=== PATIENT | female | born 1985 | race Caucasian/White ===

== ENCOUNTER 2021-06-29 15:10 | Outpatient (CLI) | payer BC, SELFPAY ==
--- NOTE | ~2021-06-29 | XR_ITS ---
XR foot RT standing 2V DATE: 06/29/2021 15:55 INDICATION: Rheumatoid arthritis TECHNIQUE: Standing AP and lateral views COMPARISON: None FINDINGS: There is moderate plantar and posterior calcaneal enthesopathy without associated periostit is or erosive change. No erosive change is evident. No fracture, dislocation, periosteal reaction or bone destruction. Ther e is narrowing at some of the interphalangeal joints likely consistent with osteoarthritis. IMPRESSION: Plantar and posterior calcaneal enthesopathy Reviewed, dictated and finalized at location B.
--- NOTE | ~2021-06-29 | XR_ITS ---
EXAMINATION: XR hand BI arthritis min 3V DATE: 06/29/2021 15:55 INDICATION: Rheumatoid arthritis with rheumatoid factor of multiple sites. TECHNIQUE: 4 views of right hand and 4 views of left hand on 7 radiographs were obtained. COMPARISON: None. FINDINGS: RIGHT HAND: There is hyperextension of third and fifth proximal interphalangeal joints. No fracture. There is mild osteoarthritis of third metacarpophalangeal joint. LEFT HAND: There is hyperextension of third, fourth, and fifth proximal interphalangeal joints. No fr acture. There is mild osteoarthritis of second and third metacarpophalangeal joints and fifth distal interphalangeal joint. IMPRESSION: 1. Mild polyarticular osteoarthritis. Reviewed, dictated and finalized at location A.
--- NOTE | ~2021-06-29 | XR_ITS ---
XR foot LT standing 2V DATE: 06/29/2021 15:55 INDICATION: Rheumatoid arthritis TECHNIQUE: Standing AP and lateral views COMPARISON: None FINDINGS: Mild plantar and posterior calcaneal enthesopathy without associated erosive change or briana ostitis. There is evidence of some erosion of the medial base of the proximal phalanx of the fifth digit. No e rosive change is evident. No fracture, dislocation, periosteal reaction or bone destruction. IMPRESSION: Plantar and posterior calcaneal enthesopathy Erosion at the medial base of the proximal phalanx of the fifth digit Reviewed, dictated and finalized at location B.
[2021-06-29 15:41] LABS: Hematocrit 39.3 % (37.0-47.0); Hemoglobin 12.9 g/dL (12.0-15.0); Mean Corpuscular HGB Conc 32.8 g/dl (32-36); Mean Corpuscular Hemoglobin 27.9 pg (26-34); Mean Corpuscular Volume 85.1 fl (80-100); Mean Platelet Volume 10.3 fl (7.4-10.4); Platelet Count Result 268 k/mm3 (150-375); Red Blood Count 4.62 M/mm3 (4.2-5.4); Red Cell Distribution Width 13.6 % (11.5-14.5); White Blood Count 5.8 K/mm3 (4.5-10.0)
[2021-06-29 15:44] LABS: Add Urine Microscopic? YES; Appearance Urine Cloudy (Clear); Bacteria Urine Trace /hpf; Bilirubin Urine Negative (Negative); Blood Urine Negative (Negative); Color Urine Yellow (Yellow); Glucose Urine UA Negative (Negative); Ketones Urine Negative (Negative); Leukocyte Esterase Ur 3+ LEU/UL (Negative); Mucus Urine Rare /lpf; Nitrate Urine Negative (Negative); Protein Urine Negative (Negative); Squamous Epithelial Cell Urine Many /hpf (Few); Urobilinogen Urine Negative mg/dL (<2.0); WBC Urine 21-30 /hpf
[2021-06-29 15:46] LABS: Alanine Aminotransferase 30 U/L (4-35); Albumin Level 4.9 g/dL (3.5-5.1); Alkaline Phosphatase 82 U/L (38-126); Anion Gap 10 mmol/L (8-16); Aspartate Amino Transferase 55 U/L (14-36); Bilirubin,Total 0.6 mg/dL (0.2-1.3); Blood Urea Nitrogen 11 mg/dL (7-17); CRP < 0.5 mg/dL (<1.0); Calcium 9.9 mg/dL (8.4-10.2); Carbon Dioxide 24 mmol/L (22-30); Chloride 105 mmol/L (98-107); Estimated Glomerular Filt Rate > 60; Glucose 97 mg/dL (65-110); Potassium 3.9 mmol/L (3.4-5.0); Sodium 139 mmol/L (137-145)
[2021-06-29 16:07] LABS: Erythrocyte Sedimentation Rate 85 mm/hr (0-20)
[2021-06-29 19:14] LABS: Hepatitis B Surface Antigen Negative (Negative)
[2021-06-29 19:32] LABS: Hepatitis B Surface Anti Res Negative; Hepatitis C Virus Antibody Negative (Negative)
[2021-07-02 05:11] LABS: Thyroid Peroxidase Antibodies 2 IU/mL (<9)
[2021-07-02 11:32] LABS: Anti Cyclic Citrullinated Pept >250 Units (<20)
[2021-07-03 10:49] LABS: NIL 0.03 IU/mL; Quantiferon TB Plus, 1T NEGATIVE (NEGATIVE); TB1-NIL 0.01 IU/mL
[2021-07-03 14:15] LABS: Anti Nuclear Antibody Pattern Nuclear, Speckled; Anti Nuclear Antibody Titer >=1:1280 (Negative)
== END 2021-06-29 15:11 | disposition home or self-care (01) ==
PROVIDERS: PCP Family Medicine; Visit Provider Internal Medicine
DX: Z11.59 Encounter for screening for other viral diseases (principal); M05.79 Rheumatoid arthritis with rheumatoid factor of multiple sites without organ or systems involvement; E55.9 Vitamin D deficiency, unspecified; M19.90 Unspecified osteoarthritis, unspecified site; M19.042 Primary osteoarthritis, left hand; M19.041 Primary osteoarthritis, right hand; M77.32 Calcaneal spur, left foot; M77.31 Calcaneal spur, right foot
CPT/HCPCS: 36415; 73130; 73620; 80053; 81001; 82306; 84443; 85027; 85652; 86038; 86039; 86140; 86200; 86376; 86480; 86706; 86803; 87086; 87340

== ENCOUNTER 2021-07-07 14:16 | Outpatient (CLI) | payer BC, SELFPAY ==
--- NOTE | ~2021-07-07 | XR_ITS ---
XR chest 2V DATE: 07/07/2021 14:35 INDICATION: Cough TECHNIQUE: PA and lateral views COMPARISON: None FINDINGS: Normal heart size. No hilar or mediastinal enlargement. No pulmonary infiltrate or consolid ation, pleural effusion or pulmonary vascular congestion or pneumothorax. Included skeletal structures are unremarkable. IMPRESSION: Negative Reviewed, dictated and finalized at location A. IMPRESSION: Negative
== END 2021-07-07 14:17 | disposition home or self-care (01) ==
PROVIDERS: PCP Family Medicine; Visit Provider Internal Medicine
DX: R05 Cough (principal)
CPT/HCPCS: 71046

== ENCOUNTER 2021-10-04 14:28 | Outpatient (CLI) | payer BC, SELFPAY ==
[2021-10-04 14:59] LABS: Hematocrit 40.4 % (37.0-47.0); Hemoglobin 13.6 g/dL (12.0-15.0); Mean Corpuscular HGB Conc 33.7 g/dl (32-36); Mean Corpuscular Hemoglobin 29.4 pg (26-34); Mean Corpuscular Volume 87.3 fl (80-100); Mean Platelet Volume 10.4 fl (7.4-10.4); Platelet Count Result 240 k/mm3 (150-375); Red Blood Count 4.63 M/mm3 (4.2-5.4); Red Cell Distribution Width 13.2 % (11.5-14.5); White Blood Count 4.6 K/mm3 (4.5-10.0)
[2021-10-04 15:06] LABS: Add Urine Microscopic? YES; Appearance Urine Cloudy (Clear); Bacteria Urine Trace /hpf; Bilirubin Urine Negative (Negative); Blood Urine Negative (Negative); Color Urine Yellow (Yellow); Glucose Urine UA Negative (Negative); Ketones Urine Negative (Negative); Leukocyte Esterase Ur 3+ LEU/UL (Negative); Mucus Urine Rare /lpf; Nitrate Urine Negative (Negative); Protein Urine 1+ mg/dL (Negative); Specific Grav Ur 1.025 (1.001-1.035); Squamous Epithelial Cell Urine Many /hpf (Few); Urobilinogen Urine Negative mg/dL (<2.0)
[2021-10-04 15:15] LABS: Alanine Aminotransferase 26 U/L (4-35); Albumin Level 4.8 g/dL (3.5-5.1); Alkaline Phosphatase 69 U/L (38-126); Anion Gap 11 mmol/L (8-16); Aspartate Amino Transferase 39 U/L (14-36); Bilirubin,Total 0.5 mg/dL (0.2-1.3); Blood Urea Nitrogen 13 mg/dL (7-17); CRP < 0.5 mg/dL (<1.0); Calcium 9.8 mg/dL (8.4-10.2); Carbon Dioxide 27 mmol/L (22-30); Chloride 103 mmol/L (98-107); Estimated Glomerular Filt Rate > 60; Glucose 88 mg/dL (65-110); Sodium 141 mmol/L (137-145)
[2021-10-04 15:19] LABS: Complement C3 131 mg/dL (88-165)
[2021-10-04 15:32] LABS: Erythrocyte Sedimentation Rate 35 mm/hr (0-20)
[2021-10-07 07:57] LABS: SM Antibody <1.0; SM/RNP Antibody <1.0; SS-A >8.0; SS-B <1.0
== END 2021-10-04 14:29 | disposition home or self-care (01) ==
LOC: ANHLAB 14:31
PROVIDERS: PCP Family Medicine; Visit Provider Internal Medicine
DX: M05.79 Rheumatoid arthritis with rheumatoid factor of multiple sites without organ or systems involvement (principal); R70.0 Elevated erythrocyte sedimentation rate; M19.90 Unspecified osteoarthritis, unspecified site; R05.9 Cough, unspecified
CPT/HCPCS: 36415; 80053; 81001; 85027; 85652; 86140; 86160; 86225; 86235; 87086

== ENCOUNTER 2022-02-08 14:43 | Outpatient (CLI) | payer BC, SELFPAY ==
[2022-02-08 14:58] LABS: Mean Corpuscular HGB Conc 33.3 g/dl (32-36); Mean Corpuscular Hemoglobin 29.3 pg (26-34); Mean Corpuscular Volume 87.8 fl (80-100); Mean Platelet Volume 9.8 fl (7.4-10.4); Platelet Count Result 290 k/mm3 (150-375); Red Blood Count 4.44 M/mm3 (4.2-5.4); Red Cell Distribution Width 13.1 % (11.5-14.5); White Blood Count 6.3 K/mm3 (4.5-10.0)
[2022-02-08 15:14] LABS: Alanine Aminotransferase 23 U/L (4-35); Albumin Level 4.9 g/dL (3.5-5.1); Alkaline Phosphatase 58 U/L (38-126); Anion Gap 9 mmol/L (8-16); Aspartate Amino Transferase 35 U/L (14-36); Bilirubin,Total 0.5 mg/dL (0.2-1.3); Blood Urea Nitrogen 10 mg/dL (7-17); CRP 1.5 mg/dL (<1.0); Calcium 9.1 mg/dL (8.4-10.2); Carbon Dioxide 26 mmol/L (22-30); Chloride 105 mmol/L (98-107); Estimated Glomerular Filt Rate > 60; Glucose 93 mg/dL (65-110); Potassium 4.3 mmol/L (3.4-5.0); Sodium 140 mmol/L (137-145)
[2022-02-08 15:30] LABS: Erythrocyte Sedimentation Rate 63 mm/hr (0-20)
== END 2022-02-08 14:44 | disposition home or self-care (01) ==
PROVIDERS: PCP Family Medicine; Visit Provider Internal Medicine
DX: M06.9 Rheumatoid arthritis, unspecified (principal); M19.90 Unspecified osteoarthritis, unspecified site
CPT/HCPCS: 36415; 80053; 85027; 85652; 86140

== ENCOUNTER 2022-07-02 14:29 | Outpatient (CLI) | payer BC, SELFPAY ==
[2022-07-02 15:00] LABS: Hematocrit 40.2 % (37.0-47.0); Hemoglobin 13.4 g/dL (12.0-15.0); Mean Corpuscular HGB Conc 33.3 g/dl (32-36); Mean Corpuscular Hemoglobin 28.5 pg (26-34); Mean Corpuscular Volume 85.5 fl (80-100); Mean Platelet Volume 10.1 fl (7.4-10.4); Platelet Count Result 292 k/mm3 (150-375); Red Cell Distribution Width 13.5 % (11.5-14.5); White Blood Count 5.8 K/mm3 (4.5-10.0)
[2022-07-02 15:14] LABS: Alanine Aminotransferase 30 U/L (6-35); Albumin Level 4.9 g/dL (3.5-5.1); Alkaline Phosphatase 57 U/L (38-126); Anion Gap 11 mmol/L (8-16); Aspartate Amino Transferase 40 U/L (14-36); Bilirubin,Total 0.4 mg/dL (0.2-1.3); Blood Urea Nitrogen 10 mg/dL (7-17); CRP 0.6 mg/dL (<1.0); Calcium 9.8 mg/dL (8.4-10.2); Carbon Dioxide 27 mmol/L (22-30); Chloride 99 mmol/L (98-107); Estimated Glomerular Filt Rate > 60; Glucose 98 mg/dL (65-110); Potassium 4.3 mmol/L (3.4-5.0); Sodium 137 mmol/L (137-145)
[2022-07-02 15:17] LABS: Appearance Urine Slightly Cloudy (Clear); Bilirubin Urine Negative (Negative); Blood Urine Negative (Negative); Color Urine Yellow (Yellow); Glucose Urine UA Negative (Negative); Ketones Urine Negative (Negative); Leukocyte Esterase Ur Negative LEU/UL (Negative); Nitrate Urine Negative (Negative); Protein Urine Negative (Negative); Specific Grav Ur >= 1.030 (1.001-1.035); Urobilinogen Urine 0.2 mg/dL (<2.0)
[2022-07-02 15:21] LABS: Mucus Urine Rare /lpf; RBC Urine 0-2 /hpf (0-2); Squamous Epithelial Cell Urine Occasional /hpf (Few); WBC Urine 0-3 /hpf
[2022-07-02 15:23] LABS: Add Urine Microscopic? YES
[2022-07-02 17:41] LABS: Erythrocyte Sedimentation Rate 1 mm/hr (0-20)
== END 2022-07-02 14:30 | disposition home or self-care (01) ==
LOC: ANHLAB 14:31
PROVIDERS: PCP Family Medicine; Visit Provider Internal Medicine
DX: M19.90 Unspecified osteoarthritis, unspecified site (principal); M06.9 Rheumatoid arthritis, unspecified; R63.4 Abnormal weight loss
CPT/HCPCS: 36415; 80053; 81001; 85027; 85652; 86140

== ENCOUNTER 2022-12-17 09:16 | Outpatient (CLI) | payer BC, SELFPAY ==
[2022-12-17 20:27] LABS: Hematocrit 44.2 % (37.0-47.0); Hemoglobin 14.1 g/dL (12.0-15.0); Mean Corpuscular HGB Conc 31.9 g/dl (32-36); Mean Corpuscular Volume 87.9 fl (80-100); Mean Platelet Volume 12.1 fl (7.4-10.4); Platelet Count Result 167 k/mm3 (150-375); Red Blood Count 5.03 M/mm3 (4.2-5.4); Red Cell Distribution Width 13.2 % (11.5-14.5); White Blood Count 5.7 K/mm3 (4.5-10.0)
[2022-12-17 20:44] LABS: Alanine Aminotransferase 51 U/L (6-35); Albumin Level 4.7 g/dL (3.5-5.1); Alkaline Phosphatase 81 U/L (38-126); Anion Gap 9 mmol/L (8-16); Aspartate Amino Transferase 69 U/L (14-36); Bilirubin,Total 0.5 mg/dL (0.2-1.3); Blood Urea Nitrogen 10 mg/dL (7-17); CRP 0.8 mg/dL (<1.0); Calcium 9.4 mg/dL (8.4-10.2); Carbon Dioxide 30 mmol/L (22-30); Chloride 102 mmol/L (98-107); Estimated Glomerular Filt Rate > 60; Glucose 95 mg/dL (65-110); Potassium 4.2 mmol/L (3.4-5.0); Sodium 141 mmol/L (137-145)
[2022-12-17 21:17] LABS: Band Neutrophils Percent 1 % (0-6); Eosinophils Absolute Manual 1.14 K/mm3 (0.02-0.5); Eosinophils Percent Manual 20 % (0-4); Lymphocytes Percent Manual 37 % (18-44); Monocytes Absolute Manual 0.22 K/mm3 (0.1-0.90); Monocytes Percent Manual 4 % (3-9); Neutrophils Absolute Manual 2.22 K/mm3 (1.7-7.2); Neutrophils Percent Manual 38 % (46-73); Platelet Estimate Adequate (Adequate); Total Cells Counted 100
[2022-12-17 21:18] LABS: Erythrocyte Sedimentation Rate 14 mm/hr (0-20); Schistocytes None Seen (NORMAL)
[2022-12-17 21:26] LABS: Appearance Urine Clear (Clear); Bilirubin Urine Negative (Negative); Blood Urine Negative (Negative); Color Urine Yellow (Yellow); Glucose Urine UA Negative (Negative); Ketones Urine Negative (Negative); Leukocyte Esterase Ur Trace LEU/UL (Negative); Nitrate Urine Negative (Negative); Protein Urine Negative (Negative); Specific Grav Ur 1.025 (1.001-1.035); Urobilinogen Urine 0.2 mg/dL (<2.0)
[2022-12-17 21:36] LABS: Add Urine Microscopic? YES; Bacteria Urine Trace /hpf; Mucus Urine Rare /lpf; RBC Urine 0-2 /hpf (0-2); Squamous Epithelial Cell Urine Few /hpf (Few); WBC Urine 0-3 /hpf
== END 2022-12-17 09:17 | disposition home or self-care (01) ==
LOC: ANHBWCLAB 09:17
PROVIDERS: PCP Family Medicine; Visit Provider Internal Medicine
DX: M05.79 Rheumatoid arthritis with rheumatoid factor of multiple sites without organ or systems involvement (principal); M19.90 Unspecified osteoarthritis, unspecified site
CPT/HCPCS: 36415; 80053; 81001; 85025; 85652; 86140